=== PATIENT | female | born 1955 | race Caucasian/White ===

== ENCOUNTER 2023-11-29 19:16 | Emergency (ER) | payer MEDICARE, SELFPAY ==
[2023-11-29 19:28] VITALS: BP 179/90; PULSE 90; RESP 18; TEMP 36.8; O2SAT 98; BMI 39.5
--- NOTE | 2023-11-29 20:34 | ED_ITS ---
HPI - General Adult 2 General: Chief complaint: General Medical Stated complaint: Mouth pain Time Seen by Provider: 11/29/23 20:29 History of Present Illness: 68-year-old female comes in today for co mplaints of dental discomfort. Patient reports biting down on the bone and believes a piece of the bone has become stuck in the tooth repair. Patient appears nontoxic. Patient appears in no acute distress. Review of Systems 2 General: Reports: 10 or more systems reviewed and unremarkable except in HPI and below Physical Exam 2 Const: COMMON NORMALS: alert HENMT: TEETH & GINGIVA IMAGES: 1. Posterior fracture Resp: COMMON NORMALS: normal respiratory effort Cardio: COMMON NORMALS: regular rate RATE: regular rate Extremity: COMMON NORMALS: normal to inspection Neuro: SENSORIUM/ORIENTATION: Yes alert Skin: COMMON NORMALS: turgor normal GENERAL SKIN EXAM: turgor normal Course 2 Vital Signs: Vital signs: Vital Signs Temperature 98.3 F 11/29/23 19:28 Pulse Rate 90 11/29/23 19:28 Respiratory Rate 18 11/29/23 19:28 Blood Pressure 179/90 11/29/23 19:28 Pulse Oximetry 98 11/29/23 19:28 MDM - General Adult Medical Decision Making Patient comes in today for complaints of discomfort to the premolar of the left upper jaw. On exam patient has what appears to be a fracture to the site of the tooth that is nondisplaced. No foreign bodies are noted. Differential diagnosis includes not limited to dental fracture, foreign body, dental caries. Reviewed exam with patient with recommendations for treatment and follow-up. Patient should follow-up with dentist in the morning for further evaluation and treatment. Patient reported understanding. No radiology studies performed this visit Discharge Plan Discharge Patient Disposition: Home Clinical Impression: Fracture of tooth Qualifiers: Encounter type: initial encounter Fracture type: closed Qualified Code(s): S 02.5XXA - Fracture of tooth (traumatic), initial encounter for closed fracture Condition: Stable Discharge Orders: Discharge ED (Routine); Ordered 11/29/23 Ordered By: Jose Roberto Carter Referrals: Junior Levi DO [Primary Care Provider] - Patient Instructions: Acute Dental Trauma (ED) Activity Restrictions/Additional Instructions: Soft diet. Follow-up with dentist in the morning or as soon as possible. Good oral care. Coding Level of Care Code ED Welcome Wagon Hostess for Garett Augustin
== END 2023-11-29 20:46 | disposition home or self-care (01) ==
PROVIDERS: Emergency Provider Nurse Practitioner Family; PCP Family Medicine
DX: S02.5XXA Fracture of tooth (traumatic), initial encounter for closed fracture (principal); X58.XXXA Exposure to other specified factors, initial encounter
CPT/HCPCS: 99281